=== PATIENT | male | born 1990 | race Caucasian/White ===

== ENCOUNTER → 2016-05-27 | Outpatient (CLI) | payer OTHER ==
--- NOTE | 2016-05-27 12:00 | REP ---
Clinical: Pain. Technique: AP, lateral, bilateral oblique and coned-down views of the lumbosacral spine. Comparison: None. Findings: Alignment and lordosis maintained. No acute fracture or dislocation identified. No significant degenerative changes noted. There is subtle anterior wedge deformity to the L1 vertebral body which may be congenital or represent subtle prior trauma. Historical correlation is recommended. No spondylolysis or spondylolisthesis. Impression: Subtle irregular contour to the L1 vertebral body as noted above. No further significant findings appreciated. Signed by Samuel Bernal MD 05/27/2016 11:51 A
== END ==
LOC: M WUC 11:23
PROVIDERS: ATTEND Physician Assistant
DX: M54.5 Low back pain (principal)

== ENCOUNTER → 2016-06-09 | Outpatient (REF) | payer OTHER ==
[2016-06-09 13:50] LABS: BLOOD UREA NITROGEN 23 MG/DL (7-18); CREATININE FOR GFR 0.89 MG/DL (0.70-1.30); GLOMERULAR FILTRATION RATE > 60.0 (>60)
== END ==
LOC: M LABDRAW1 12:49
PROVIDERS: ATTEND Orthopaedic Surgery
DX: M54.5 Low back pain (principal)

== ENCOUNTER → 2017-03-23 | Outpatient (CLI) | payer BC | LOC: M WUC 14:19 | DX: M79.671 Pain in right foot (principal) | CPT/HCPCS: 73630 ==

== ENCOUNTER 2022-12-08 07:45 | Day surgery (SDC) | payer OTHER ==
[~2022-12-08] VITALS: Ht 190.5 cm; Wt 103.5 kg
[~2022-12-08 07:45] MED LIST: LOSA50TA28 PO; NS 1,000 ML IV ONE
[2022-12-08] MEDS ORDERED: propofoL 200 MG/20 ML VIAL As Ordered ONE (08:55)
[2022-12-08] MEDS ORDERED: LIDOCAINE 2% 100MG/5ML SDV (FOR ANES.) As Ordered ONE (08:55)
[2022-12-08 09:10] VITALS: TEMP 98
[2022-12-08 09:31] VITALS: BP 107/52; O2SAT 97
== END 2022-12-08 09:31 | disposition home or self-care (01) ==
LOC: M OPP 07:45
PROVIDERS: ATTEND Internal Medicine Gastroenterology
DX: K63.5 Polyp of colon (principal); K64.4 Residual hemorrhoidal skin tags; K64.8 Other hemorrhoids; Z79.899 Other long term (current) drug therapy; Z88.1 Allergy status to other antibiotic agents

== ENCOUNTER → 2024-09-28 | Outpatient (CLI) | payer OTHER ==
[~2024-09-28] MED LIST changes: -NS 1,000 ML IV ONE
== END ==
LOC: M RAD 13:56
PROVIDERS: ATTEND Family Medicine
DX: D40.11 Neoplasm of uncertain behavior of right testis (principal); N50.3 Cyst of epididymis